=== PATIENT | male | born 1995 | race African-American/Black ===

== ENCOUNTER 2019-09-15 19:23 | Emergency (ER) | payer SELFPAY ==
[~2019-09-15] VITALS: Ht 198.1 cm; Wt 81.6 kg
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
[2019-09-15] MEDS ORDERED: AMOX/CLAVULANATE 875 MG TABLET PO STA (19:43)
[2019-09-15] MEDS ORDERED: AMOX/CLAVULANATE 875 MG TABLET ONE (19:47)
[2019-09-15 20:41] VITALS: BP 124/75
--- NOTE | 2019-09-15 20:41 | NUR ---
Patient discharged to home in stable condition. Written and verbal after care instructions given. Patient verbalizes understanding of instruction.
== END 2019-09-15 20:42 | disposition home or self-care (01) ==
LOC: ER 19:27
DX: S60.512A Abrasion of left hand, initial encounter (principal); L03.114 Cellulitis of left upper limb; W22.8XXA Striking against or struck by other objects, initial encounter; Y93.89 Activity, other specified; Y92.89 Other specified places as the place of occurrence of the external cause; Y99.8 Other external cause status
CPT/HCPCS: 29125; 73130; 99283; L3763